=== PATIENT | female | born 1990 | race Two or more races ===

== ENCOUNTER 2022-08-06 09:29 | Emergency (ER) | payer OTHER ==
[~2022-08-06] VITALS: Ht 152.4 cm; Wt 55.8 kg
[2022-08-06] MEDS ORDERED: GLYCOTROL CAPS1 EACH PO (10:26)
== END 2022-08-06 12:15 | disposition home or self-care (01) ==
LOC: ER 09:29
DX: M25.572 Pain in left ankle and joints of left foot (principal); X50.9XXA Other and unspecified overexertion or strenuous movements or postures, initial encounter; Y93.89 Activity, other specified; Y92.9 Unspecified place or not applicable

== ENCOUNTER 2022-10-02 19:03 | Emergency (ER) | payer OTHER ==
[~2022-10-02] VITALS: Ht 152.4 cm; Wt 55.8 kg
[~2022-10-02 19:03] MED LIST: GLYCOTROL CAPS1 EACH PO
== END 2022-10-02 21:08 | disposition home or self-care (01) ==
LOC: ER 19:03
DX: U07.1 COVID-19 (principal)